=== PATIENT | female | born 1955 | race American Indian/Alaskan Native ===

== ENCOUNTER 2018-02-11 06:21 | Day surgery (SDC) | payer BC ==
[2018-02-01 10:01] VITALS: BMI 44.9
[2018-02-11] MEDS ORDERED: Phenylephrine 10 mg/ml Inj ONE (06:57)
[2018-02-11] MEDS ORDERED: Lidocaine 2% Inj (20ml) ONE (06:57)
[2018-02-11] MEDS ORDERED: Iodixanol 320 MG/ML 200 ML BOTTLE IV ONE (06:57)
[2018-02-11] MEDS ORDERED: Iohexol 350mgl/ml 50 ML ONE (06:57)
[2018-02-11 07:11] LABS: BASO # 0.03 K/mm3 (0.0-2.0); BASO % 0.4 % (0.0-3.0); EOS # 0.3 (0.0-0.7); EOS % 3.9 % (1.5-5.0); GRAN # 4.53 (1.4-6.5); GRAN % 60.6 % (50.0-68.0); HEMOGLOBIN 12.5 g/dL (12.0-16.0); LYMPH # 2.3 (1.2-3.4); LYMPH % 30.1 % (22.0-35.0); MEAN CELL VOLUME 77.1 fl (80.0-105.0); MEAN CORPUSCULAR HEMOGLOBIN 25.4 pg (25.0-35.0); MEAN CORPUSCULAR HGB CONC 32.9 g/dl (31.0-37.0); MONO # 0.4 (0.1-0.6); RBC 4.93 10^6/uL (3.5-6.1); RED CELL DISTRIBUTION WIDTH 14.2 % (11.5-14.5); WHITE BLOOD COUNT 7.5 10^3/ul (4.5-11.0)
[2018-02-11 07:18] LABS: BLOOD UREA NITROGEN 15 mg/dL (7-21); CALCIUM 9.4 mg/dL (8.4-10.5); GFR AFRICAN-AMERICAN > 60; GFR NON-AFRICAN AMERICAN > 60
[2018-02-11 07:29] LABS: INR 0.99 (0.93-1.08); PARTIAL THROMBOPLASTIN TIME 29.5 Seconds (25.1-36.5); PROTHROMBIN TIME 11.4 SECONDS (9.4-12.5)
[2018-02-11] MEDS ORDERED: DiphenhydrAMINE 50 mg/ml Inj ONE (07:29)
[2018-02-11] MEDS ORDERED: Famotidine 20mg/50ml 20 MG/50 ML BAG IVPB ONE (07:29)
[2018-02-11] MEDS ORDERED: Midazolam 2 MG/2 ML VIAL ONE ×2 (07:36→07:55)
[2018-02-11] MEDS ORDERED: Nitroglycerin 50mg in D5W 50 MG/250 ML BOTTLE IV ONE (08:15)
[2018-02-11] MEDS ORDERED: Sodium Chloride 0.9% 1,000 ML IV SCH (08:45)
--- NOTE | 2018-02-11 10:12 | CARD ---
APPROVED REPORT EKG Measurement Heart [id number] [place] [id number] <Conclusion> Sinus rhythm with premature atrial complexes with aberrant conduction PRWP ST & T wave abnormality, consider lateral ischemia Prolonged QT
[2018-02-11 10:13] VITALS: RESP 20
--- NOTE | 2018-02-11 10:31 | CARD ---
APPROVED REPORT EKG Measurement Heart [id number] [place] 134P39 [id number] <Conclusion> Sinus rhythm with frequent and consecutive premature ventricular complexes Moderate voltage criteria for LVH, may be normal variant T wave abnormality, consider lateral ischemia Prolonged QT Electrical artifact present
--- NOTE | 2018-02-11 10:44 | HP ---
HISTORY OF PRESENT ILLNESS: I was called by Dr. Andino to see her status post cardiac catheterization and stent placement. She has a past medical history of being a 62-year-old female which has diabetes, hypertension, arthritis, back pains, knee pains. She had cardiac cath in the past. SOCIAL HISTORY: No tobacco. No alcohol if any. No substance abuse. FAMILY HISTORY: No known family history. REVIEW OF SYSTEMS: No acute vision or hearing loss. No chest pain, but shortness of breath and some tiredness at times. No nausea, vomiting, constipation, diarrhea. No leg pains. Not weak. PHYSICAL EXAMINATION: VITAL SIGNS: She has a 98.1 temp, 78 pulse, 157/76 blood pressure, 22 respiratory rate, 96% O2 sat on room air. HEENT: Head is atraumatic, normocephalic. Extraocular muscles are intact. Throat is dry. NECK: Supple. HEART: Regular rate. LUNGS: Decreased breath sounds, but clear to auscultation. ABDOMEN: Soft, obese, nontender. EXTREMITIES: No edema. MEDICATIONS: She is currently on Ecotrin, Lipitor, Plavix and IV fluids. She is a diabetic. I will put her on insulin coverage. LABORATORY DATA: She has a 143 sodium, potassium 3.7, BUN 15, creatinine 0.7, GFR is greater than 60, sugar is 221, calcium is 9.4. White count is 7.5, hemoglobin 12.5, hematocrit 38, platelets of 238. INR is 0.99. IMPRESSION: She will be watched lying flat for 6 hours, then she can get up. We will feed her lying flat. We will watch overnight. Check her labs tomorrow. She is here for coronary artery disease with stent placement with diabetes history and hypertension. Genaro Bassett DO
[2018-02-11] MEDS: Insulin Reg-HIGH-Coverage SC SCH ×3 (11:46→22:21)
--- NOTE | 2018-02-11 13:47 | CARDCATH ---
PROCEDURE DATE: 02/11/2018 HISTORY: The patient is a 62-year-old woman with multiple cardiac risk factors including obesity, diabetes mellitus, hypertension and hypercholesterolemia who presents with chest pain, dyspnea and an abnormal stress test. Because of this, cardiac catheterization was recommended. PROCEDURE: Left heart catheterization with coronary arteriography and left ventriculogram followed by percutaneous transluminal coronary angioplasty and stent of a 90% circumflex artery. The right femoral artery was cannulated with 6-[place] sheath. There were no complications. I performed moderate sedation which included the presence of an independent trained observer that assisted in monitoring the patient's level of consciousness and physiologic status. After administration of Versed and fentanyl, my intra-service time was 30 minutes. Findings on catheterization revealed a left ventricle that was mildly globally hypokinetic. Estimated ejection fraction is 45%-50%. Her coronary anatomy revealed a codominant circulation. The RCA revealed intimal irregularities without significant stenoses. The left main artery was unremarkable. The LAD and diagonal vessels revealed intimal irregularities without significant stenoses. The obtuse marginal branches revealed a 90% stenosis in the midportion of large obtuse marginal branch. The patient was started on intravenous Angiomax on the fluoroscopic guide, the guiding catheter was placed in the ostium of the left main artery. An 0.014 ATW wire was used to cross the critical lesion in the obtuse marginal branch of the circumflex artery. A 2.5 balloon was utilized to pre-dilate the lesion. A 3.5 x 12 mm drug-eluting stent was placed and deployed in the midportion of the obtuse marginal branch at 14 atmospheres of pressure. Repeat coronary arteriography revealed a narrowing distal to the stent. This was not relieved with 200 of intracoronary nitroglycerin. A 3.5 x 8 mm drug-eluting stent was placed and employed just distal to the first stent. Repeat coronary artery revealed an excellent result with resolution of all lesions and no residual stenosis and TANESHA-3 flow. The patient tolerated the procedure well. Angio-Seal was used to close the femoral artery site. In summary, the procedure was successful PTCA and stent of a 90% stenosed lesion in the obtuse marginal branch. Drug-eluting stents were utilized. LV function was mildly hypokinetic with an EF of 45%-50%. Given these findings, the patient will need to remain on aspirin indefinitely and Plavix for at least a year and undergo a strict cardiac risk reduction program. Pawan Andino MD
[2018-02-12 06:26] LABS: BASO # 0.01 K/mm3 (0.0-2.0); BASO % 0.1 % (0.0-3.0); EOS % 0.1 % (1.5-5.0); GRAN # 9.54 (1.4-6.5); HEMOGLOBIN 12.3 g/dL (12.0-16.0); LYMPH # 1.9 (1.2-3.4); LYMPH % 15.8 % (22.0-35.0); MEAN CORPUSCULAR HEMOGLOBIN 25.2 pg (25.0-35.0); MEAN CORPUSCULAR HGB CONC 33.2 g/dl (31.0-37.0); MEAN PLATELET VOLUME 11.1 fl (7.0-11.0); MONO # 0.5 (0.1-0.6); RBC 4.88 10^6/uL (3.5-6.1); RED CELL DISTRIBUTION WIDTH 13.8 % (11.5-14.5); WHITE BLOOD COUNT 11.9 10^3/ul (4.5-11.0)
[2018-02-12 06:55] LABS: ALBUMIN 3.3 g/dL (3.0-4.8); ALT/SGPT 16 U/L (7-56); AST/SGOT 23 U/L (14-36); BLOOD UREA NITROGEN 15 mg/dL (7-21); CALCIUM 9.3 mg/dL (8.4-10.5); GFR AFRICAN-AMERICAN > 60; GFR NON-AFRICAN AMERICAN > 60
[2018-02-12 07:35] VITALS: BP 168/75; PULSE 70; TEMP 98.7; O2SAT 97
[2018-02-12] MEDS: Insulin Reg-HIGH-Coverage SC SCH (08:03)
--- NOTE | 2018-02-12 09:51 | CARD ---
APPROVED REPORT EKG Measurement Heart [id number] ID [id number] <Conclusion> Normal sinus rhythm Possible Left atrial enlargement LVH STTW changes c/w ischemia Prolonged QTc No change except less ectopy now.
--- NOTE | 2018-02-12 10:46 | PN ---
DATE: 02/12/2018 CARDIOLOGY FOLLOWUP SUBJECTIVE: The patient is asymptomatic post PTCA. PHYSICAL EXAMINATION: VITAL SIGNS: Blood pressure 168/75, heart rates in the 70s. NECK: Negative JVD. LUNGS: Without rales. HEART: Reveals S1, S2. EXTREMITIES: Without edema. LABORATORY DATA: Hemoglobin is 12. Chemistries: BUN and creatinine are unremarkable. Glucose is 251. IMPRESSION: 1. Stable post percutaneous transluminal coronary angioplasty and stent of the circumflex artery with a drug-eluting stent. 2. Coronary artery disease. 3. Diabetes mellitus. 4. Hypercholesterolemia. 5. Obesity. PLAN: Given these findings, the patient is stable for discharge. Followup and instructions have been given to the patient in detail. Pawan Andino MD
--- NOTE | 2018-02-12 13:13 | DS ---
HISTORY OF PRESENT ILLNESS: She is sitting up in bed, resting comfortably, doing quite well in good spirits. She had no problems over the night. She is eating well, walking well, going to the bathroom well. No chest pain. No shortness of breath. No abdominal pain. We are going to be discharging her today. I discussed this with the nutritional assistant, Dr. Andino. She is here for status post percutaneous transluminal coronary angioplasty and stent of the circumflex artery with a drug-eluting stent. She has CAD, diabetes, high cholesterol, obesity. PHYSICAL EXAMINATION: VITAL SIGNS: 98.7 temp, 70 pulse, 168/75 blood pressure, 20 respiratory rate, 97% O2 sat on room air. HEENT: Head is atraumatic, normocephalic. HEART: Regular rate. LUNGS: Clear to auscultation. ABDOMEN: Soft, obese, nontender. EXTREMITIES: No edema. MEDICATIONS: She has Ecotrin, Lipitor, Plavix are her medications. LABORATORY DATA: She has a 11.9 white count, 12.3 hemoglobin, 37.1 hematocrit with a 260 platelets. She has a 140 sodium, potassium 3.8, BUN is 50, creatinine 0.6, GFR is greater than 60, sugar is 206, calcium is 9.3, total bili is 0.9, AST is 23, ALT is 16, alk phos is 101, total protein 6.7. ASSESSMENT AND PLAN: She will start her diabetes medications tomorrow. She will follow up with the primary care doctor this week coming and she is discharged. Genaro Bassett DO
== END 2018-02-12 11:49 | disposition home or self-care (01) ==
LOC: CATH 06:21 → 2RNO 08:39 → CATH 02-12 11:49
PROVIDERS: ATTEND Internal Medicine Cardiovascular Disease
DX: I25.10 Atherosclerotic heart disease of native coronary artery without angina pectoris (principal); I10 Essential (primary) hypertension; E11.9 Type 2 diabetes mellitus without complications; E78.00 Pure hypercholesterolemia, unspecified; E66.9 Obesity, unspecified; M19.90 Unspecified osteoarthritis, unspecified site; Z79.4 Long term (current) use of insulin; Z68.41 Body mass index [BMI] 40.0-44.9, adult; Z79.82 Long term (current) use of aspirin
CPT/HCPCS: 36415; 80048; 82948; 85025; 85610; 85730; 86850; 86900; 93005; 93458; 99152; 99153; C1725; C1760; C1769; C1874 ×2; C1887 ×2; C2629; C9600; C9601; J0583; J1200; J1644; J2250; J2930; J3010; J7040 ×2; Q9966; Q9967

== ENCOUNTER 2019-02-21 05:52 | Outpatient (CLI) | payer BC | END 2019-02-21 05:53 | disposition home or self-care (01) | LOC: CARDIO 05:52 ==